=== PATIENT | male | born 1995 | race African-American/Black ===

== ENCOUNTER 2017-10-02 17:53 | Emergency (ER) | payer SELFPAY ==
[~2017-10-02] VITALS: Ht 177.8 cm; Wt 116.8 kg
[2017-10-02 18:48] VITALS: BP 123/73
== END 2017-10-02 18:33 | disposition home or self-care (01) ==
LOC: EME 17:53
DX: S00.81XA Abrasion of other part of head, initial encounter (principal); S00.31XA Abrasion of nose, initial encounter; Y04.2XXA Assault by strike against or bumped into by another person, initial encounter
CPT/HCPCS: 99281; 99284